=== PATIENT | male | born 1970 | race Caucasian/White ===

== ENCOUNTER → 2017-01-24 | Outpatient (CLI) | payer BC ==
--- NOTE | 2017-01-24 10:52 | US ---
EXAMINATION: Abdominal ultrasound HISTORY: Elevated liver function tests COMPARISON: CT dated 03/06/2010 TECHNIQUE: Grayscale and color Doppler images obtained of the abdomen. FINDINGS: The visualized aorta appears normal. Pancreas is not well characterized. The liver is mode rately increased in generalized echotexture without a focal hepatic mass. Common bile duct measures 6 mm. Cholecystectomy. Right kidney measures 12.6 cm and the left kidney measures 10.7 cm pole-to-po le without evidence of hydronephrosis. Renal cortical echotexture appears normal. Normal color Doppl er flow bilaterally. Spleen appears unremarkable. No images of the IVC included. No abdominal ascite s. IMPRESSION: 1. Moderate fatty infiltration otherwise grossly unremarkable abdominal ultrasound.
== END | disposition home or self-care (01) ==
LOC: MW.US 08:35
PROVIDERS: ATTEND Internal Medicine Gastroenterology
DX: R79.89 Other specified abnormal findings of blood chemistry (principal); K76.0 Fatty (change of) liver, not elsewhere classified
CPT/HCPCS: 76700; 76700-26

== ENCOUNTER 2022-12-09 06:42 | Day surgery (SDC) | payer BC ==
[~2022-12-09 06:42] MED LIST: Lactated Ringers 1,000 ML IV SCH; Sodium Chloride 0.9% 10 ML Syringe FLUSH PRN; Sodium Chloride 0.9% 2.5 ML Syringe FLUSH PRN; Sodium Chloride 0.9% 20 ML SDV IV PRN; ceFAZolin 2 GM in Premix Bag 1 BAG IV ONE
[2022-12-09] MEDS ORDERED: fentaNYL 50 MCG/ML SDV IVPUSH PRN (06:51)
[2022-12-09] MEDS ORDERED: Morphine 2 MG/ML SYRINGE IVPUSH PRN (06:51)
[2022-12-09] MEDS ORDERED: Naloxone 0.4 MG/ML SDV IVPUSH PRN (06:51)
[2022-12-09] MEDS ORDERED: HYDROmorphone 1 MG/ML Syringe IVPUSH PRN (06:51)
[2022-12-09] MEDS ORDERED: Ondansetron 4 MG/2 ML SDV IVPUSH PRN (06:51)
[2022-12-09] MEDS ORDERED: Albuterol 0.083% 2.5 MG/3 ML Neb Soln NEB PRN (06:51)
[2022-12-09] MEDS ORDERED: Metoclopramide 10 MG/2 ML SDV IVPUSH PRN (06:51)
[2022-12-09] MEDS ORDERED: Ropivacaine 0.5% 5 MG/ML 30 ML SDV ONE (07:19)
[2022-12-09] MEDS ORDERED: Sugammadex Sodium 200 MG/2 ML VIAL ONE (07:21)
[2022-12-09] MEDS ORDERED: Propofol 200 MG/20 ML SDV ONE (07:21)
[2022-12-09] MEDS ORDERED: Water For Injection, Sterile 20 ML ONE (07:21)
[2022-12-09] MEDS ORDERED: ceFAZolin 2 GM Vial ONE (07:21)
[2022-12-09] MEDS ORDERED: Lidocaine 2% 5 ML SDV ONE (07:21)
[2022-12-09] MEDS ORDERED: Dexamethasone 4 MG/ML 5 ML MDV ONE (07:21)
[2022-12-09] MEDS ORDERED: Ondansetron 4 MG/2 ML SDV ONE (07:21)
[2022-12-09] MEDS ORDERED: Rocuronium Bromide 50 MG/5 ML Syringe ONE (07:21)
[2022-12-09] MEDS ORDERED: fentaNYL 100 MCG/2 ML SDV ONE (07:22)
[2022-12-09] MEDS ORDERED: Bupivacaine 0.5% 30 ML SDV ONE (07:31)
[2022-12-09 10:09] VITALS: BP 135/89; PULSE 72
== END 2022-12-09 10:30 | disposition home or self-care (01) ==
LOC: MW.SDS 06:42
PROVIDERS: ATTEND Surgery
DX: K43.2 Incisional hernia without obstruction or gangrene (principal); J45.909 Unspecified asthma, uncomplicated; G47.33 Obstructive sleep apnea (adult) (pediatric); K58.9 Irritable bowel syndrome, unspecified; Z91.040 Latex allergy status; Z79.899 Other long term (current) drug therapy; Z98.890 Other specified postprocedural states
CPT/HCPCS: 49591; J0131; J0690; J1100; J2405; J2704; J2795; J3010; J3490; J7120